=== PATIENT | male | born 1985 | race Caucasian/White ===

== ENCOUNTER 2021-01-04 09:26 | Emergency (ER) | payer OTHER ==
[~2021-01-04 09:26] MED LIST: ASPIRIN CHEWABL81 MG PO; Bromphed DM PO; FLONASE 0.05% N16 GM; IBUPROFEN600 MG PO; NITROSTAT0.4 MG SL; ZOFRAN 4 MG TAB4 MG PO; ZYRTEC10 MG PO
[2021-01-04 10:03] LABS: HEMOGLOBIN 15.2 gm/dl (14.0-17.5); RED BLOOD COUNT 4.55 M/UL (4.20-5.50); WHITE BLOOD COUNT 7.5 K/UL (4.5-11.0)
[2021-01-04 10:23] LABS: BUN/CREATININE RATIO 25 (0-10)
== END 2021-01-04 11:04 | disposition home or self-care (01) ==
LOC: ER1 09:26
PROVIDERS: Emergency Medicine
DX: R10.9 Unspecified abdominal pain (principal); R19.7 Diarrhea, unspecified
CPT/HCPCS: 36415; 80053; 81001; 83690; 85025; 99284; J7030